=== PATIENT | male | born 1975 | race Caucasian/White ===

== ENCOUNTER 2017-11-13 17:06 | Emergency (ER) | payer OTHER ==
[2017-11-13] MEDS ORDERED: MEPERIDINE HCL 50 MG/ML AMP ONE (18:34)
[2017-11-13] MEDS ORDERED: PROMETHAZINE HCL 50 MG/ML AMP IM ONE (18:34)
--- NOTE | 2017-11-13 19:02 | EDPHYS ---
Physician Documentation [facility] Name: Fidencio Riley Age: 42 yrs Sex: Male : 1975 Arrival Date: 11/13/2017 Time: 17:09 Bed 15 Private MD: Fredy Capone ED Physician Constance Hawkins HPI: 11/13 18:41 This 42 yrs old Male presents to ER via Ambulatory with complaints of jr8 Toothache. 18:41 The patient presents with broken tooth/teeth, pain. The problem is located in the right jr8 lower jaw. Onset: The symptoms/episode began/occurred acutely, today. Duration: The symptoms are continuous. Modifying factors: The symptoms are alleviated by nothing, the symptoms are aggravated by air, chewing, cold fluids, talking. Associated signs and symptoms: The patient has no apparent associated signs or symptoms. Severity of symptoms: At their worst the symptoms were moderate, in the emergency department the symptoms are unchanged. The patient has not experienced similar symptoms in the past. The patient has not recently seen a physician. Historical: - Allergies: 17:11 Enbrel; sv - Home Meds: 17:11 meloxicam oral oral [Active]; Tramadol Oral [Active]; Prilosec Oral [Active]; sv - PMHx: 17:11 GERD; sv - PSHx: 17:11 Hernia repair; sv - Immunization history:: Adult Immunizations up to date. - Social history:: Smoking status: Patient/guardian denies using tobacco. - Ebola Screening: : No symptoms or risks identified at this time. ROS: 18:41 Eyes: Negative for injury, pain, redness, and discharge, Neck: Negative for injury, jr8 pain, and swelling, Cardiovascular: Negative for chest pain, palpitations, and edema, Respiratory: Negative for shortness of breath, cough, wheezing, and pleuritic chest pain, Abdomen/GI: Negative for abdominal pain, nausea, vomiting, diarrhea, and constipation, Back: Negative for injury and pain, MS/Extremity: Negative for injury and deformity, Skin: Negative for injury, rash, and discoloration, Neuro: Negative for headache, weakness, numbness, tingling, and seizure. 18:41 ENT: Positive for dental pain, Negative for ear pain, nasal discharge, rhinorrhea, sinus congestion, sinus pain, difficulty swallowing, difficulty handling secretions, hoarseness. Exam: 18:41 Eyes: Pupils equal round and reactive to light, extra-ocular motions intact. Lids and jr8 lashes normal. Conjunctiva and sclera are non-icteric and not injected. Cornea within normal limits. Periorbital areas with no swelling, redness, or edema. Neck: Trachea midline, no thyromegaly or masses palpated, and no cervical lymphadenopathy. Supple, full range of motion without nuchal rigidity, or vertebral point tenderness. No Meningismus. Cardiovascular: Regular rate and rhythm with a normal S1 and S2. No gallops, murmurs, or rubs. Normal PMI, no JVD. No pulse deficits. Respiratory: Lungs have equal breath sounds bilaterally, clear to auscultation and percussion. No rales, rhonchi or wheezes noted. No increased work of breathing, no retractions or nasal flaring. Abdomen/GI: Soft, non-tender, with normal bowel sounds. No distension or tympany. No guarding or rebound. No evidence of tenderness throughout. Back: No spinal tenderness. No costovertebral tenderness. Full range of motion. Skin: Warm, dry with normal turgor. Normal color with no rashes, no lesions, and no evidence of cellulitis. MS/ Extremity: Pulses equal, no cyanosis. Neurovascular intact. Full, normal range of motion. Neuro: Awake and alert, GCS 15, oriented to person, place, time, and situation. Cranial nerves II-XII grossly intact. Motor strength 5/5 in all extremities. Sensory grossly intact. Cerebellar exam normal. Normal gait. 18:41 ENT: Exam is negative for earache, ear discharge, TM abnormalities, nasal discharge, sinus tenderness, enlarged tonsils, pharyngitis, exudate, abnormal voice, Dental exam: dental caries, that is mild, diffusely, fractured teeth are noted, specifically the lower right second bicuspid (#29), gum swelling, not appreciated, pain, that is moderate, specifically in the lower right second bicuspid (#29). Vital Signs: 17:11 BP 128 / 88; Pulse 77; Resp 20; Temp 98.3; Pulse Ox 97% ; Weight 93.89 kg; Height 6 ft. sv 0 in. (182.88 cm); Pain 9/10; 18:45 BP 124 / 89; Pulse 72; Resp 18; Pulse Ox 97% ; Pain 9/10; ph 17:11 Body Mass Index 28.07 (93.89 kg, 182.88 cm) [facility]: 17:51 Patient medically screened. jr8 19:00 Data reviewed: vital signs, nurses notes, and as a result, I will discharge patient. jr8 Data interpreted: Pulse oximetry: on room air is 97 %. Interpretation: normal. Counseling: I had a detailed discussion with the patient and/or guardian regarding: the historical points, exam findings, and any diagnostic results supporting the discharge/admit diagnosis, the need for outpatient follow up, a dentist, to return to the emergency department if symptoms worsen or persist or if there are any questions or concerns that arise at home. Response to treatment: the patient's symptoms have markedly improved after treatment. Administered Medications: 18:35 Drug: Demerol 50 mg Route: IM; Site: right gluteus; ph 19:05 Follow up: Response: No adverse reaction; Pain is decreased ph 18:35 Drug: Phenergan 25 mg Route: IM; Site: right gluteus; ph 19:05 Follow up: Response: No adverse reaction ph Disposition: 11/13/17 19:00 Discharged to Home. Impression: Periapical abscess without sinus, Dentalgia. - Condition is Stable. - Discharge Instructions: Dental Abscess, Dental Pain. - Prescriptions for Augmentin 875- 125 mg Oral Tablet - take 1 tablet by ORAL route every 12 hours for 10 days; 20 tablet. - Medication Reconciliation Form, Thank You Letter, Antibiotic Education, Prescription Opioid Use form. - Follow up: Private Physician; When: 2 - 3 days; Reason: Recheck today's complaints, Continuance of care, Re-evaluation by your physician. - Problem is new. - Symptoms have improved. Addendum: 11/17/2017 18:23 Co-signature as Attending Physician, Constance Hawkins MD. m a2 Signatures: Deisy Gonzales, RN RN Sae Juarez PA PA jr8 Kirti Wahl RN RN Ritchie Bae RN RN jb4 Constance Hawkins MD MD ma2 Corrections: (The following items were deleted from the chart) 11/13 19:12 19:00 11/13/2017 19:00 Discharged to Home. Impression: Periapical abscess without jb4 sinus; Dentalgia. Condition is Stable. Forms are Medication Reconciliation Form, Thank You Letter, Antibiotic Education, Prescription Opioid Use. Follow up: Private Physician; When: 2 - 3 days; Reason: Recheck today's complaints, Continuance of care, Re-evaluation by your physician. Problem is new. Symptoms have improved. jr8
--- NOTE | 2017-11-13 19:02 | ER ---
Nurse's Notes [facility] Name: Fidencio Riley Age: 42 yrs Sex: Male : 1975 Arrival Date: 11/13/2017 Time: 17:09 Bed 15 Private MD: Fredy Capone Diagnosis: Periapical abscess without sinus;Dentalgia Presentation: 11/13 17:10 Presenting complaint: Patient states: right lower toothache. c/o n/v/d. Transition of sv care: patient was not received from another setting of care. Onset of symptoms was November 13, 2017. Care prior to arrival: None. 17:10 Method Of Arrival: Ambulatory sv 17:10 Acuity: JOSE G 3 sv 18:47 Risk Assessment: Do you want to hurt yourself or someone else? Patient reports no ph desire to harm self or others. Initial Sepsis Screen: Does the patient meet any 2 criteria? No. Patient's initial sepsis screen is negative. Does the patient have a suspected source of infection? No. Patient's initial sepsis screen is negative. Triage Assessment: 17:10 General: Appears uncomfortable, well developed, Behavior is cooperative, appropriate sv for age. Pain: Complains of pain in right lower tooth Pain currently is 9 out of 10 on a pain scale. EENT: Reports pain. Neuro: Level of Consciousness is awake, alert, obeys commands, Oriented to person, place, time, situation, Moves all extremities. Full function Gait is steady. Respiratory: Respiratory effort is even, unlabored, Respiratory pattern is regular, symmetrical. GI: Reports diarrhea, nausea, vomiting. Derm: Skin is normal. Historical: - Allergies: 17:11 Enbrel; sv - Home Meds: 17:11 meloxicam oral oral [Active]; Tramadol Oral [Active]; Prilosec Oral [Active]; sv - PMHx: 17:11 GERD; sv - PSHx: 17:11 Hernia repair; sv - Immunization history:: Adult Immunizations up to date. - Social history:: Smoking status: Patient/guardian denies using tobacco. - Ebola Screening: : No symptoms or risks identified at this time. Screenin:46 Abuse screen: Denies threats or abuse. Denies injuries from another. Nutritional ph screening: No deficits noted. Tuberculosis screening: No symptoms or risk factors identified. Fall Risk None identified. Assessment: 18:15 General: Appears in no apparent distress. uncomfortable, well groomed, Behavior is ph calm, cooperative, appropriate for age, Denies fever. Pain: Complains of pain in right jaw Pain currently is 9 out of 10 on a pain scale. Neuro: Level of Consciousness is awake, alert, obeys commands, Oriented to person, place, time, situation. Cardiovascular: Capillary refill < 3 seconds Patient's skin is warm and dry. Respiratory: Airway is patent Respiratory effort is even, unlabored. GI: Reports nausea, vomiting, Patient currently denies abdominal pain. EENT: Oral mucosa is moist. Dental caries noted in lower right second bicuspid (#29). Derm: Skin is intact, is healthy with good turgor, Skin is. Musculoskeletal: Circulation, motion, and sensation intact. Range of motion: intact in all extremities. 19:11 Reassessment: Patient appears in no apparent distress at this time. Patient and/or jb4 family updated on plan of care and expected duration. Pain level reassessed. Patient is alert, oriented x 3, equal unlabored respirations, skin warm/dry/pink. Vital Signs: 17:11 BP 128 / 88; Pulse 77; Resp 20; Temp 98.3; Pulse Ox 97% ; Weight 93.89 kg; Height 6 ft. sv 0 in. (182.88 cm); Pain 9/10; 18:45 BP 124 / 89; Pulse 72; Resp 18; Pulse Ox 97% ; Pain 9/10; ph 17:11 Body Mass Index 28.07 (93.89 kg, 182.88 cm) sv ED Course: 17:09 Patient arrived in ED. sb2 17:09 Freyd Capone DO is Private Physician. sb2 17:10 Triage completed. sv 17:12 Arm band placed on left wrist. sv 17:12 Patient placed in an exam room, Patient notified of wait time. sv 17:51 Sae Franco PA is PHCP. jr8 17:51 Constance Hawkins MD is Attending Physician. jr8 18:16 Kirti Wahl, [place] is Primary Nurse. ph 18:47 Patient has correct armband on for positive identification. Bed in low position. Call ph light in reach. Side rails up X 1. Pulse ox on. NIBP on. Warm blanket given. 18:47 No provider procedures requiring assistance completed. Patient did not have IV access ph during this emergency room visit. Administered Medications: 18:35 Drug: Demerol 50 mg Route: IM; Site: right gluteus; ph 19:05 Follow up: Response: No adverse reaction; Pain is decreased ph 18:35 Drug: Phenergan 25 mg Route: IM; Site: right gluteus; ph 19:05 Follow up: Response: No adverse reaction ph Outcome: 19:00 Discharge ordered by . martina 19:11 Discharged to home ambulatory. jb4 19:11 Condition: stable 19:11 Discharge instructions given to patient, family, Instructed on discharge instructions, follow up and referral plans. medication usage, Demonstrated understanding of instructions, follow-up care, medications, Prescriptions given X 1. 19:12 Patient left the ED. jb4 Signatures: Deisy Gonzales, RN RN Sae Franco PA PA jr8 Hall, Patricia, RN RN Ritchie Bae RN RN jb4 Amanda Saeed sb2 Corrections: (The following items were deleted from the chart) 17:12 17:10 Acuity: JOSE G 4 sv sv 17:13 17:11 Pulse 77bpm; Resp 20bpm; Pulse Ox 97%; Temp 98.3F; 93.89 kg; Height 6 ft. 0 in.; sv BMI: 28.0; sv
== END 2017-11-13 19:12 | disposition home or self-care (01) ==
LOC: ER 17:06
DX: K04.7 Periapical abscess without sinus (principal); K21.9 Gastro-esophageal reflux disease without esophagitis; Z88.8 Allergy status to other drugs, medicaments and biological substances
CPT/HCPCS: J2175; J2550; 96372; 99283

== ENCOUNTER 2018-01-19 09:12 | Emergency (ER) | payer OTHER ==
[2018-01-19] MEDS ORDERED: HYDROCODONE/APAP 10/325 TAB ONE (09:38)
--- NOTE | 2018-01-19 10:44 | EDPHYS ---
Physician Documentation [facility] Name: Fidencio Riley Age: 42 yrs Sex: Male : 1975 Arrival Date: 01/19/2018 Time: 09:14 Bed 14 Private MD: Fredy Capone ED Physician Franky Wang HPI: 01/19 09:29 This 42 yrs old Male presents to ER via Ambulatory with complaints of pm1 Toothache. 09:29 The patient presents with pain. The problem is located in the lower right first molar. pm1 09:29 Onset: The symptoms/episode began/occurred this morning. Duration: The symptoms are pm1 continuous. Modifying factors: The symptoms are alleviated by nothing. Associated signs and symptoms: Pertinent negatives: dysphagia, fever, inability to eat, swelling. Severity of symptoms: in the emergency department the symptoms are actually worse. The patient has experienced similar episodes in the past. dental extraction of third upper and lower molars on left side. Historical: - Allergies: 09:21 Enbrel; ss - PMHx: 09:21 GERD; ss - PSHx: 09:21 Hernia repair; ss - Immunization history:: Adult Immunizations up to date. - Social history:: Smoking status: Patient/guardian denies using tobacco. - Ebola Screening: : Patient denies exposure to infectious person Patient denies travel to an Ebola-affected area in the 21 days before illness onset. ROS: 09:29 Constitutional: Negative for fever, chills, and weight loss, Eyes: Negative for injury, pm1 pain, redness, and discharge. 09:29 Neck: Negative for injury, pain, and swelling, Cardiovascular: Negative for chest pain, palpitations, and edema, Respiratory: Negative for shortness of breath, cough, wheezing, and pleuritic chest pain, Abdomen/GI: Negative for abdominal pain, nausea, vomiting, diarrhea, and constipation, Back: Negative for injury and pain, : Negative for injury, bleeding, discharge, and swelling, MS/Extremity: Negative for injury and deformity, Skin: Negative for injury, rash, and discoloration, Neuro: Negative for headache, weakness, numbness, tingling, and seizure. 09:29 ENT: Positive for dental pain, Negative for drainage from ear(s), ear pain, difficulty swallowing, difficulty handling secretions, hoarseness. Exam: 09:29 Constitutional: This is a well developed, well nourished patient who is awake, alert, pm1 and in no acute distress. Head/Face: Normocephalic, atraumatic. Eyes: Pupils equal round and reactive to light, extra-ocular motions intact. Lids and lashes normal. Conjunctiva and sclera are non-icteric and not injected. Cornea within normal limits. Periorbital areas with no swelling, redness, or edema. 09:29 Neck: Trachea midline, no thyromegaly or masses palpated, and no cervical lymphadenopathy. Supple, full range of motion without nuchal rigidity, or vertebral point tenderness. No Meningismus. Chest/axilla: Normal chest wall appearance and motion. Nontender with no deformity. No lesions are appreciated. Cardiovascular: Regular rate and rhythm with a normal S1 and S2. No gallops, murmurs, or rubs. Normal PMI, no JVD. No pulse deficits. Respiratory: Lungs have equal breath sounds bilaterally, clear to auscultation and percussion. No rales, rhonchi or wheezes noted. No increased work of breathing, no retractions or nasal flaring. Abdomen/GI: Soft, non-tender, with normal bowel sounds. No distension or tympany. No guarding or rebound. No evidence of tenderness throughout. Back: No spinal tenderness. No costovertebral tenderness. Full range of motion. Skin: Warm, dry with normal turgor. Normal color with no rashes, no lesions, and no evidence of cellulitis. MS/ Extremity: Pulses equal, no cyanosis. Neurovascular intact. Full, normal range of motion. :29 ENT: External ear(s): are unremarkable, Ear canal(s): are normal, TM's: are normal, Nose: is normal, Mouth: is normal, no abscess, no drooling, (-) tongue elevation (-) trismus Lips: normal, Oral mucosa: normal, pink and intact, moist, Gums: normal with healthy appearance, Tongue: is normal, Posterior pharynx: is normal, airway is patent, no erythema, no exudate, no peritonsilar mass, no pooling of secretions, no swelling, Dental exam: fractured teeth are noted, specifically the lower right first molar (#30). 09:29 Neuro: Orientation: is normal, Motor: is normal, Gait: is steady, at a normal pace, without difficulty. Vital Signs: 09:21 BP 143 / 100; Pulse 89; Resp 17; Temp 98.1(TE); Pulse Ox 98% on R/A; Weight 93.89 kg; ss Height 6 ft. 0 in. (182.88 cm); Pain 5/10; 10:30 BP 138 / 92; Pulse 70; Resp 18; Temp 98.0; Pulse Ox 98% on R/A; ph 09:21 Body Mass Index 28.07 (93.89 kg, 182.88 cm) ss MDM: 09:17 Patient medically screened. pm1 09:29 Data reviewed: vital signs. Data interpreted: Pulse oximetry: on room air is 98 %. pm1 Interpretation: normal. 09:29 ED course: Patient had two teeth pulled by the dentist 3 days ago on the left side. pm1 Prescribed clindamycin and Tylenol #3 by dentist. Patient is currently on his 4 th day of antibiotics. Patient is currently taking tramadol for his pain and it does not work for his dental pain. His prescription for Tylenol #3 was refused by the pharmacist so he did not have any pain medications yesterday for his dental pain. 10:41 Counseling: I had a detailed discussion with the patient and/or guardian regarding: the pm1 historical points, exam findings, and any diagnostic results supporting the discharge/admit diagnosis, the need for outpatient follow up, to return to the emergency department if symptoms worsen or persist or if there are any questions or concerns that arise at home. Administered Medications: 09:36 Drug: [place] 10 mg-325 mg 1 tabs Route: PO; ph 10:54 Follow up: Response: No adverse reaction; Pain is unchanged, physician notified ph 10:53 Drug: Demerol 50 mg Route: IM; Site: right deltoid; ph 10:54 Follow up: Response: No adverse reaction; Medication administered at discharge. ph 10:54 Drug: Phenergan 25 mg Route: IM; Site: right deltoid; ph 10:54 Follow up: Response: No adverse reaction; Medication administered at discharge. ph Disposition: 01/20 11:10 Co-signature as Attending Physician, Franky Wang MD. gs Disposition: 01/19/18 10:43 Discharged to Home. Impression: Cracked tooth, Dental pain. - Condition is Stable. - Discharge Instructions: Dental Pain, Dental Pain, [id number], Diet and Dental Disease. - Medication Reconciliation Form, Thank You Letter, Antibiotic Education, Prescription Opioid Use form. - Follow up: Emergency Department; When: As needed; Reason: Worsening of condition. Follow up: Private Physician; When: 2 - 3 days; Reason: Recheck today's complaints, Continuance of care, Re-evaluation by your physician. - Problem is new. - Symptoms have improved. - Notes: Continue taking the antibiotic prescribed by your dentist as directed. Fill your tylenol #3 prescription for pain and take as directed. Signatures: Sneha Tipton RN RN ss Kirti Wahl RN RN ph Ty Rios, ANT WOOD DRILLING MACHINE OPERATOR pm1 Franky Wang MD MD Corrections: (The following items were deleted from the chart) 01/19 11:11 10:43 01/19/2018 10:43 Discharged to Home. Impression: Cracked tooth; Dental pain. ph Condition is Stable. Forms are Medication Reconciliation Form, Thank You Letter, Antibiotic Education, Prescription Opioid Use. Follow up: Emergency Department; When: As needed; Reason: Worsening of condition. Follow up: Private Physician; When: 2 - 3 days; Reason: Recheck today's complaints, Continuance of care, Re-evaluation by your physician. Problem is new. Symptoms have improved. pm1
--- NOTE | 2018-01-19 10:44 | ER ---
Nurse's Notes [facility] Name: Fidencio Riley Age: 42 yrs Sex: Male : 1975 Arrival Date: 01/19/2018 Time: 09:14 Bed 14 Private MD: Fredy Capone Diagnosis: Cracked tooth;Dental pain Presentation: 01/19 09:19 Presenting complaint: Patient states: dental pain that began this morning. PT recently ss had teeth pulled and has been on Clindamycin as he is getting this problematic tooth pulled this week. Pt states that he was trying to wait it out until the extraction, but is in too much pain. Transition of care: patient was not received from another setting of care. Onset of symptoms was January 19, 2018. Risk Assessment: Do you want to hurt yourself or someone else? Patient reports no desire to harm self or others. Initial Sepsis Screen: Does the patient meet any 2 criteria? No. Patient's initial sepsis screen is negative. Does the patient have a suspected source of infection? No. Patient's initial sepsis screen is negative. Care prior to arrival: None. 09:19 Method Of Arrival: Ambulatory ss 09:19 Acuity: JOSE G 5 ss Historical: - Allergies: 09:21 Enbrel; ss - PMHx: 09:21 GERD; ss - PSHx: 09:21 Hernia repair; ss - Immunization history:: Adult Immunizations up to date. - Social history:: Smoking status: Patient/guardian denies using tobacco. - Ebola Screening: : Patient denies exposure to infectious person Patient denies travel to an Ebola-affected area in the 21 days before illness onset. Screenin:45 Abuse screen: Denies threats or abuse. Denies injuries from another. Nutritional ph screening: No deficits noted. Tuberculosis screening: No symptoms or risk factors identified. Fall Risk None identified. Assessment: 09:35 General: Appears in no apparent distress. uncomfortable, well groomed, Behavior is ph calm, cooperative, appropriate for age, Denies fever. Pain: Complains of pain in right jaw Pain currently is 8 out of 10 on a pain scale. Quality of pain is described as throbbing. Neuro: Level of Consciousness is awake, alert, obeys commands, Oriented to person, place, time, situation. Cardiovascular: Capillary refill < 3 seconds Patient's skin is warm and dry. Respiratory: Airway is patent Respiratory effort is even, unlabored. GI: Patient currently denies diarrhea, nausea, vomiting. EENT: Poor dentition noted. Reports pain in lower right first molar and lower right second molar. Derm: Skin is intact, is healthy with good turgor, Skin is pink, warm \\T\\ dry. Musculoskeletal: Circulation, motion, and sensation intact. Range of motion: intact in all extremities. 10:45 Reassessment: Patient appears in no apparent distress at this time. Patient and/or ph family updated on plan of care and expected duration. Pain level reassessed. Patient is alert, oriented x 3, equal unlabored respirations, skin warm/dry/pink. Pt reports that pain has not improved after oral pain medication, ERP notified, see MAR. 11:10 Reassessment: Patient appears in no apparent distress at this time. Patient is alert, ph oriented x 3, equal unlabored respirations, skin warm/dry/pink. Pt d/c home w/ , states, " I will be calling the dentist first thing tomorrow.". Vital Signs: 09:21 BP 143 / 100; Pulse 89; Resp 17; Temp 98.1(TE); Pulse Ox 98% on R/A; Weight 93.89 kg; ss Height 6 ft. 0 in. (182.88 cm); Pain 5/10; 10:30 BP 138 / 92; Pulse 70; Resp 18; Temp 98.0; Pulse Ox 98% on R/A; ph 09:21 Body Mass Index 28.07 (93.89 kg, 182.88 cm) ED Course: 09:14 Patient arrived in ED. mr 09:15 Fredy Capone DO is Private Physician. mr 09:16 Ty Rios NP is PHCP. pm1 09:16 Franky Wang MD is Attending Physician. pm1 09:20 Kirti Wahl RN is Primary Nurse. ph 09:21 Triage completed. ss 09:21 Arm band placed on right wrist. ss 09:45 Patient has correct armband on for positive identification. Bed in low position. Call ph light in reach. Side rails up X 1. Pulse ox on. Sitter at bedside. Warm blanket given. 11:10 No provider procedures requiring assistance completed. Patient did not have IV access ph during this emergency room visit. Administered Medications: 09:36 Drug: [place] 10 mg-325 mg 1 tabs Route: PO; ph 10:54 Follow up: Response: No adverse reaction; Pain is unchanged, physician notified ph 10:53 Drug: Demerol 50 mg Route: IM; Site: right deltoid; ph 10:54 Follow up: Response: No adverse reaction; Medication administered at discharge. ph 10:54 Drug: Phenergan 25 mg Route: IM; Site: right deltoid; ph 10:54 Follow up: Response: No adverse reaction; Medication administered at discharge. ph Outcome: 10:43 Discharge ordered by MD. pm1 11:11 Patient left the ED. ph 11:11 Discharged to home ambulatory, with significant other. ph 11:11 Condition: good 11:11 Discharge instructions given to patient, significant other, Instructed on discharge instructions, follow up and referral plans. Signatures: Heidi Muir Shelby, RN RN Kirti Wahl RN RN ph Marinas, Patrick, ANT SEAM PRESSER pm1
[2018-01-19] MEDS ORDERED: MEPERIDINE HCL 50 MG/ML AMP ONE (10:48)
[2018-01-19] MEDS ORDERED: PROMETHAZINE HCL 50 MG/ML AMP IM ONE (10:49)
== END 2018-01-19 11:11 | disposition home or self-care (01) ==
LOC: ER 09:12
DX: K03.81 Cracked tooth (principal); K08.89 Other specified disorders of teeth and supporting structures
CPT/HCPCS: 96372; 99284; J2175; J2550

== ENCOUNTER 2018-04-14 00:32 | Observation (INO) | payer OTHER ==
--- OUTSIDE RECORDS SUMMARY | 2018-04-14 00:35 | XMS REPORT ---
:1975 [facility] Address [address] [place] [address] Dr. Thomas. [address] [place] [id number] Care Team Providers Name Role Phone Unavailable Unavailable Unavailable Problems This patient has no known problems. Allergies, Adverse Reactions, Alerts This patient has no known allergies or adverse reactions. Medications This patient has no known medications.
[2018-04-14 01:28] LABS: ALT/SGPT 54 U/L (12-78); AST/SGOT 23 U/L (15-37); Albumin 4.2 g/dL (3.4-5.0); Alkaline Phosphatase 90 U/L (45-117); BUN Blood Urea Nitrogen 20 mg/dL (7-18); Bicarbonate 26 mmol/L (21-32); Bilirubin Direct < 0.1 mg/dL (0-0.2); Bilirubin Total 0.2 mg/dL (0.2-1.0); Glucose Level 135 mg/dL (74-106); Magnesium 2.3 mg/dL (1.8-2.4); NT PRO-BNP 11 pg/mL (<125); Potassium 3.9 mmol/L (3.5-5.1); Protein, Total 7.8 g/dL (6.4-8.2); Sodium Level 144 mmol/L (136-145); Troponin (Emerg Dept Use Only) < 0.02 ng/mL (0.0-0.045)
[2018-04-14 01:28] LABS: Absolute Monocytes 0.9 K/uL (0.1-1.3); Absolute Neutrophil 7.4 K/uL (1.8-8.0); Basophils % 0.6 % (0-1.3); Eosinophils % 1.4 % (0-4.4); Hematocrit 42.1 % (39.6-49.0); Lymphocytes % 18.6 % (15.3-44.8); Monocytes % 8.4 % (3.3-12.3); RBC Red Blood Cell Count 4.96 M/uL (4.33-5.43)
[2018-04-14] MEDS ORDERED: NA CHLORIDE 0.9% 1,000 ML ONE (01:33)
[2018-04-14] MEDS ORDERED: METOPROLOL TARTRATE 5 MG/5 ML INJ IV ONE (01:33)
[2018-04-14] MEDS ORDERED: ENOXAPARIN 100 MG/ML SYR SQ ONE (01:33)
[2018-04-14] MEDS ORDERED: METOPROLOL TAR 50 MG TAB ONE (01:33)
[2018-04-14 01:39] LABS: Protime INR 1.03
--- NOTE | 2018-04-14 01:44 | EDPHYS ---
Physician Documentation [facility] Name: Fidencio Riley Age: 42 yrs Sex: Male : 1975 Arrival Date: 04/14/2018 Time: 00:37 Bed 19 Private MD: Fredy Capone ED Physician Jyalon Carolina HPI: 04/14 01:13 This 42 yrs old Male presents to ER via Ambulatory with complaints of Heart chato rate 120-130. 01:13 The patient has shortness of breath at rest. Onset: The symptoms/episode began/occurred chato today. Duration: The symptoms are continuous, and are steadily getting worse. The patient's shortness of breath has no apparent modifying factors, is aggravated by nothing. The patient presents with a history of heart racing. Context: The symptoms occur at rest. Historical: - Allergies: 00:48 Enbrel; la1 - Home Meds: 01:05 meloxicam Oral [Active]; Prilosec Oral [Active]; Tramadol Oral [Active]; tl2 - PMHx: 00:48 GERD; la1 - Immunization history:: Adult Immunizations up to date. - Social history:: Smoking status: Patient/guardian denies using tobacco. - Ebola Screening: : No symptoms or risks identified at this time. - Family history:: not pertinent. ROS: 01:13 Constitutional: Negative for fever, chills, and weight loss, Eyes: Negative for injury, chato pain, redness, and discharge, ENT: Negative for injury, pain, and discharge, Neck: Negative for injury, pain, and swelling, Respiratory: Negative for shortness of breath, cough, wheezing, and pleuritic chest pain, Abdomen/GI: Negative for abdominal pain, nausea, vomiting, diarrhea, and constipation, Back: Negative for injury and pain, : Negative for injury, bleeding, discharge, and swelling, MS/Extremity: Negative for injury and deformity, Skin: Negative for injury, rash, and discoloration, Neuro: Negative for headache, weakness, numbness, tingling, and seizure, Psych: Negative for depression, anxiety, suicide ideation, homicidal ideation, and hallucinations, Allergy/Immunology: Negative for hives, rash, and allergies, Endocrine: Negative for neck swelling, polydipsia, polyuria, polyphagia, and marked weight changes, Hematologic/Lymphatic: Negative for swollen nodes, abnormal bleeding, and unusual bruising. 01:13 Constitutional: Positive for 01:13 Cardiovascular: Positive for chest pain, of the anterior aspect of left shoulder. Exam: 01:13 Constitutional: This is a well developed, well nourished patient who is awake, alert, chato and in no acute distress. Head/Face: Normocephalic, atraumatic. Eyes: Pupils equal round and reactive to light, extra-ocular motions intact. Lids and lashes normal. Conjunctiva and sclera are non-icteric and not injected. Cornea within normal limits. Periorbital areas with no swelling, redness, or edema. ENT: Nares patent. No nasal discharge, no septal abnormalities noted. Tympanic membranes are normal and external auditory canals are clear. Oropharynx with no redness, swelling, or masses, exudates, or evidence of obstruction, uvula midline. Mucous membranes moist. Neck: Trachea midline, no thyromegaly or masses palpated, and no cervical lymphadenopathy. Supple, full range of motion without nuchal rigidity, or vertebral point tenderness. No Meningismus. Chest/axilla: Normal chest wall appearance and motion. Nontender with no deformity. No lesions are appreciated. Respiratory: Lungs have equal breath sounds bilaterally, clear to auscultation and percussion. No rales, rhonchi or wheezes noted. No increased work of breathing, no retractions or nasal flaring. Abdomen/GI: Soft, non-tender, with normal bowel sounds. No distension or tympany. No guarding or rebound. No evidence of tenderness throughout. Back: No spinal tenderness. No costovertebral tenderness. Full range of motion. Male : Normal genitalia with no discharge or lesions. Skin: Warm, dry with normal turgor. Normal color with no rashes, no lesions, and no evidence of cellulitis. MS/ Extremity: Pulses equal, no cyanosis. Neurovascular intact. Full, normal range of motion. Neuro: Awake and alert, GCS 15, oriented to person, place, time, and situation. Cranial nerves II-XII grossly intact. Motor strength 5/5 in all extremities. Sensory grossly intact. Cerebellar exam normal. Normal gait. Psych: Awake, alert, with orientation to person, place and time. Behavior, mood, and affect are within normal limits. 01:13 Cardiovascular: Rate: tachycardic, Rhythm: regular, Heart sounds: normal, Edema: is not appreciated, JVD: is not appreciated. 01:43 Musculoskeletal/extremity: ROM: no acute changes, intact in all extremities, chato Circulation is intact in all extremities. Sensation intact. Compartment Syndrome exam of affected extremity: is normal. DVT Exam: No signs of deep vein thrombosis. no pain, no swelling, no tenderness, negative Homans' sign noted on exam, no appreciated bluish discoloration, no erythema, no increased warmth. Vital Signs: 00:48 BP 145 / 97; Pulse 120; Resp 18; Temp 97; Pulse Ox 98% on R/A; Weight 90.72 kg; Height la1 6 ft. 0 in. (182.88 cm); 01:02 BP 125 / 89; Pulse 106; Resp 24; Pulse Ox 94% on R/A; tl2 01:34 BP 117 / 79; Pulse 94; Resp 22; Pulse Ox 94% on R/A; tl2 03:08 BP 121 / 85; Pulse 64; Resp 21; Pulse Ox 98% on R/A; tl2 00:48 Body Mass Index 27.12 (90.72 kg, 182.88 cm) la1 MDM: 01:[address] [facility] 01:17 Data reviewed: vital signs, nurses notes, lab test result(s), EKG, radiologic studies, [facility] plain films. 02 00:49 Order name: Basic Metabolic Panel; Complete Time: 01:41 ok04/14 00:49 Order name: CBC with Diff; Complete Time: 01:41 ok04/14 00:49 Order name: LFT's; Complete Time: 01:41 ok04/14 00:49 Order name: Magnesium; Complete Time: 01:41 04/14 00:49 Order name: NT PRO-BNP; Complete Time: 01:41 04/14 00:49 Order name: PT-INR; Complete Time: 01:59 ok04/14 00:49 Order name: Troponin (emerg Dept Use Only); Complete Time: 01:41 04/14 00:49 Order name: XRAY Chest (1 view) [facility] 04/14 01:12 Order name: UDS [facility] 04/14 01:12 Order name: TSH; Complete Time: 01:59 [facility] 04/14 01:24 Order name: D-Dimer; Complete Time: 01:59 [facility] 04/14 03:09 Order name: Urine Dipstick--Ancillary (enter results) ar5 04/14 03:14 Order name: Urine Dipstick-Ancillary [facility] 04/14 00:49 Order name: EKG; Complete Time: 00:50 [facility] 04/14 00:49 Order name: Cardiac monitoring; Complete Time: 01:01 [facility] 04/14 00:49 Order name: EKG - Nurse/Tech; Complete Time: 01:01 ok04/14 00:49 Order name: IV Saline Lock; Complete Time: 01:01 ok04/14 00:49 Order name: Labs collected and sent; Complete Time: 01: ok04/14 00:49 Order name: O2 Per Protocol; Complete Time: 01:01 ok04/14 00:49 Order name: O2 Sat Monitoring; Complete Time: 01:01 [facility] 04/14 02:01 Order name: EKG; Complete Time: 02:01 [facility] 04/14 02:01 Order name: EKG - Nurse/Tech; Complete Time: 02:28 [facility] 04/14 02:31 Order name: Urine Dipstick-Ancillary (obtain specimen); Complete Time: 03:08 [facility] Administered Medications: 01:32 Drug: NS 0.9% 1000 ml Route: IV; Rate: 1 bolus; Site: right antecubital; tl2 03:15 Follow up: IV Status: Completed infusion; IV Intake: 1000ml tl2 01:33 Drug: Lovenox 1 mg/kg Route: Sub-Q; Site: right lower abdomen; tl2 02:00 Follow up: Response: No adverse reaction tl2 01:33 Drug: Lopressor (metoprolol TARTRATE) 50 mg Route: PO; tl2 03:15 Follow up: Response: No adverse reaction; Cardiac rhythm changed tl2 01:33 Drug: Lopressor 5 mg Route: IVP; Site: right antecubital; tl2 03:15 Follow up: Response: No adverse reaction; Cardiac rhythm changed tl2 01:59 Drug: Aspirin Chewable Tablet 324 mg Route: PO; tl2 03:15 Follow up: Response: No adverse reaction tl2 01:59 Drug: Pepcid 20 mg Route: IVP; Site: right antecubital; tl2 03:15 Follow up: Response: No adverse reaction tl2 Disposition: 04/14/18 01:43 Hospitalization ordered by Kadeem Guzman for Observation. Preliminary diagnosis are Tachycardia, unspecified, Palpitations, Other chest pain - atypical. - Bed requested for Telemetry/MedSurg (observation). - Status is Observation. tl2 - Condition is Stable. - Problem is new. - Symptoms have improved. UTI on Admission? No Signatures: Dispatcher [employer] [facility] Polina Dailey RN RN kl Anderson, Corey, MD MD cha Attema, Lee, RN RN la1 Lora Meza RN RN tl2 Corrections: (The following items were deleted from the chart) 01:24 01:13 D-DIMER+COAG.LAB.BRZ ordered. [facility] 03:02 01:43 Hospitalization Ordered by Kadeem Guzman MD for Observation. Preliminary kl diagnosis is Tachycardia, unspecified; Palpitations; Other chest pain - atypical. Bed requested for Telemetry/MedSurg (observation). Status is Observation. Condition is Stable. Problem is new. Symptoms have improved. UTI on Admission? No. chato 03:31 03:02 04/14/2018 01:43 Hospitalization Ordered by Kadeem Guzman MD for Observation. tl2 Preliminary diagnosis is Tachycardia, unspecified; Palpitations; Other chest pain - atypical. Bed requested for Telemetry/MedSurg (observation). Status is Observation. Condition is Stable. Problem is new. Symptoms have improved. UTI on Admission? No. kl
--- NOTE | 2018-04-14 01:44 | ER ---
Nurse's Notes [facility] Name: Fidencio Riley Age: 42 yrs Sex: Male : 1975 Arrival Date: 04/14/2018 Time: 00:37 Bed 19 Private MD: Fredy Capone Diagnosis: Tachycardia, unspecified;Palpitations;Other chest pain-atypical Presentation: 04/14 00:46 Presenting complaint: Patient states: I have been having intermittent episodes where my la1 HR is in like the 120s and it usually lasts about 10 minutes and goes away, tonight it has been going on for 2-3 hours and I am having chest pain, dizziness, and a headache as well as being clammy. Transition of care: patient was not received from another setting of care. Onset of symptoms was April 14, 2018. Risk Assessment: Do you want to hurt yourself or someone else? Patient reports no desire to harm self or others. Initial Sepsis Screen: Does the patient meet any 2 criteria? No. Patient's initial sepsis screen is negative. Does the patient have a suspected source of infection? No. Patient's initial sepsis screen is negative. Care prior to arrival: None. 00:46 Method Of Arrival: Ambulatory la1 00:46 Acuity: JOSE G 2 la1 Historical: - Allergies: 00:48 Enbrel; la1 - Home Meds: 01:05 meloxicam Oral [Active]; Prilosec Oral [Active]; Tramadol Oral [Active]; tl2 - PMHx: 00:48 GERD; la1 - Immunization history:: Adult Immunizations up to date. - Social history:: Smoking status: Patient/guardian denies using tobacco. - Ebola Screening: : No symptoms or risks identified at this time. - Family history:: not pertinent. Screenin:02 Abuse screen: Denies threats or abuse. Nutritional screening: No deficits noted. tl2 Tuberculosis screening: No symptoms or risk factors identified. Fall Risk None identified. Assessment: 01:02 General: Appears in no apparent distress. uncomfortable, Behavior is cooperative, tl2 appropriate for age, anxious. Pain: Complains of pain in chest Pain radiates to anterior aspect of left shoulder. Neuro: Level of Consciousness is awake, alert, obeys commands, Oriented to person, place, time, situation. Cardiovascular: Rhythm is sinus rhythm with PACs. Cardiovascular: Reports diaphoresis, palpitations. Respiratory: Airway is patent Respiratory effort is even, unlabored, Respiratory pattern is regular, symmetrical, Denies shortness of breath. GI: No signs and/or symptoms were reported involving the gastrointestinal system. : No signs and/or symptoms were reported regarding the genitourinary system. Derm: Skin is pink, warm \T\ dry. Vital Signs: 00:48 BP 145 / 97; Pulse 120; Resp 18; Temp 97; Pulse Ox 98% on R/A; Weight 90.72 kg; Height la1 6 ft. 0 in. (182.88 cm); 01:02 BP 125 / 89; Pulse 106; Resp 24; Pulse Ox 94% on R/A; tl2 01:34 BP 117 / 79; Pulse 94; Resp 22; Pulse Ox 94% on R/A; tl2 03:08 BP 121 / 85; Pulse 64; Resp 21; Pulse Ox 98% on R/A; tl2 00:48 Body Mass Index 27.12 (90.72 kg, 182.88 cm) la1 Vitals: 01:02 Cardiac Rhythm Assessment Irregular Sinus rhythm. tl2 03:08 Cardiac Rhythm Assessment Regular Sinus rhythm. tl2 ED Course: 00:37 Patient arrived in ED. es 00:38 Fredy Capone DO is Private Physician. es 00:47 Triage completed. la1 00:48 Arm band placed on left wrist. la1 01:00 Jaylon Carolina MD is Attending Physician. chato 01:01 Initial lab(s) drawn, by ok, sent to lab. EKG done, by ED staff, reviewed by Jaylon Carolina MD. Inserted saline lock: 20 gauge in right antecubital area, using aseptic technique. Blood collected. 01:02 Patient has correct armband on for positive identification. Placed in gown. Bed in low tl2 position. Call light in reach. Side rails up X 1. Adult w/ patient. 01:12 Fredy Ricardo, CAROLINA is Primary Nurse. la1 01:34 Lora Meza, CAROLINA is Primary Nurse. tl2 01:34 XRAY Chest (1 view) In Process Unspecified. EDMS 01:41 Kadeem Guzman MD is Hospitalizing Provider. chato 03:20 No provider procedures requiring assistance completed. Patient admitted, IV remains in tl2 place. Administered Medications: 01:32 Drug: NS 0.9% 1000 ml Route: IV; Rate: 1 bolus; Site: right antecubital; tl2 03:15 Follow up: IV Status: Completed infusion; IV Intake: 1000ml tl2 01:33 Drug: Lovenox 1 mg/kg Route: Sub-Q; Site: right lower abdomen; tl2 02:00 Follow up: Response: No adverse reaction tl2 01:33 Drug: Lopressor (metoprolol TARTRATE) 50 mg Route: PO; tl2 03:15 Follow up: Response: No adverse reaction; Cardiac rhythm changed tl2 01:33 Drug: Lopressor 5 mg Route: IVP; Site: right antecubital; tl2 03:15 Follow up: Response: No adverse reaction; Cardiac rhythm changed tl2 01:59 Drug: Aspirin Chewable Tablet 324 mg Route: PO; tl2 03:15 Follow up: Response: No adverse reaction tl2 01:59 Drug: Pepcid 20 mg Route: IVP; Site: right antecubital; tl2 03:15 Follow up: Response: No adverse reaction tl2 Intake: 03:15 IV: 1000ml; Total: 1000ml. tl2 Outcome: 01:43 Decision to Hospitalize by Provider. chato 03:20 Admitted to Tele accompanied by tech, family with patient, via wheelchair, room 407, tl2 with chart, Report called to CAROLINA Worthington 03:20 Condition: stable 03:20 Discharge instructions given to patient, family, Instructed on the need for admit. 03:31 Patient left the ED. tl2 Signatures: Dispatcher [employer] Jaylon Brady MD MD cha Salyer, Edna es Attema, Lee RN RN la1 Lora Meza RN RN tl2 Corrections: (The following items were deleted from the chart) 00:49 00:46 Acuity: JOSE G 3 la1 la1 01:04 01:02 Cardiac Rhythm Assessment Sinus rhythm W/PAC's tl2 tl2 03:15 03:08 BP 121 / 85; Pulse 64bpm; Resp 21bpm; Pulse Ox 67% RA; tl2 tl2
[2018-04-14] MEDS ORDERED: FAMOTIDINE 20 MG/2 ML VIAL IV ONE (02:00)
[2018-04-14] MEDS ORDERED: ASPIRIN 81 MG CHEWABLE TABLET ONE (02:00)
--- NOTE | 2018-04-14 02:51 | P.HP ---
Certification for Inpatient Patient admitted to: Observation With expected LOS: <2 Midnights Practitioner: I am a practitioner with admitting privileges, knowledge of patient current condition, hospital course, and medical plan of care. Services: Services provided to patient in accordance with Admission requirements found in Title 42 Section 412.3 of the Code of Federal Regulations Patient History Date of Service: 04/14/18 Reason for admission: chest pain History of Present Illness: Mr Riley is a 42 years old male with history of GERD and recurrent episodes of tachycardia since about 10 years ago. He was already seen by social service director in the past, but not clear diagnosis have been made. At this time, the patient was in the bed, when suddenly start feeling palpitations and rapid heart rate associated with diaphoresis and chest pain, which are new symptoms for him. His pain was retrosternal, pressure like, radiated to the back, 7/10 of intensity. He denied nausea and SOB. Lab work is unremarkable, including negative initial trop I and normal TSH, EKG shows sinus tachycardia with frequent PAC's without ST-T abnormalities. He does not drink alcohol, coffee, use illegal drugs or smoke cigarettes. At my encounter, the patient was chest pain free, but really concern about his new symptoms. Allergies etanercept [From Enbrel] Allergy (Verified 01/08/17 08:49) Itching/Hives/Rash honey Allergy (Verified 01/08/17 08:49) Itching/Hives/Rash Home medications list reviewed: Yes Home Medications: Celecoxib [Celebrex] 200 mg PO BID 01/08/17 Multivit-Min/FA/Lycopen/Lutein [Centrum Silver Tablet] 1 each PO DAILY 01/08/17 Omeprazole [Prilosec] 40 mg PO DAILY 01/08/17 Tramadol HCl [Ultram] 50 mg PO Q6HP PRN 01/08/17 sulfaSALAzine [Sulfasalazine] 500 mg PO BID 01/08/17 - Past Medical/Surgical History -: tachycardia -: GERD Past Surgical History: Reviewed- Non-Contributory - Social History Smoking Status: Never smoker Alcohol use: No CD- Drugs: No Caffeine use: No Place of Residence: Home Review of Systems 10-point ROS is otherwise unremarkable Physical Examination - Physical Exam General: Alert, In no apparent distress HEENT: Atraumatic, PERRLA, Mucous membr. moist/pink, EOMI, Sclerae nonicteric Neck: Supple, 2+ carotid pulse no bruit, No LAD, Without JVD or thyroid abnormality Respiratory: Clear to auscultation bilaterally, Normal air movement Cardiovascular: Regular rate/rhythm, Normal S1 S2 Gastrointestinal: Normal bowel sounds, No tenderness Musculoskeletal: No tenderness Integumentary: No rashes Neurological: Normal gait, Normal speech, Normal strength at 5/5 x4 extr, Normal tone, Normal affect Lymphatics: No axilla or inguinal lymphadenopathy - Studies Laboratory Data (last 24 hrs) 04/14/18 01:15: PT 12.1, INR 1.03 04/14/18 01:15: WBC 10.5, Hgb 14.3, Hct 42.1, Plt Count 279 04/14/18 00:55: Sodium 144, Potassium 3.9, BUN 20 H, Creatinine 1.07, Glucose 135 H, Magnesium 2.3, Total Bilirubin 0.2, AST 23, ALT 54, Alkaline Phosphatase 90 Assessment and Plan - Problems (Diagnosis) (1) Chest pain Current Visit: Yes Status: Acute Qualifiers: Chest pain type: precordial pain Qualified Code(s): R07.2 - Precordial pain (2) Sinus tachycardia Current Visit: Yes Status: Acute (3) Palpitations Current Visit: Yes Status: Acute (4) GERD (gastroesophageal reflux disease) Current Visit: Yes Status: Acute Qualifiers: Esophagitis presence: esophagitis presence not specified Qualified Code(s) : K21.9 - Gastro-esophageal reflux disease without esophagitis - Plan The patient will be admitted to the hospital due to chest pain associated with sinus tachycardia and diaphoresis. At the moment no signs of ACS. Will order serial trop I, EKG, ECHO, cardiology consult. - Advance Directives Does patient have a Living Will: No Does patient have a Durable POA for Healthcare: No - Code Status/Comfort Care Code Status Assessed: Yes Code Status: Full Code
[2018-04-14 03:13] LABS: Urine Blood TRACE (NEG); Urine Glucose NEGATIVE (NEG); Urine Protein NEGATIVE (NEG); Urine Specific Gravity 1.015 (1.005-1.030)
[2018-04-14 03:25] LABS: Barbiturates NEGATIVE (NEGATIVE); Benzodiazepines NEGATIVE (NEGATIVE); Cocaine NEGATIVE (NEGATIVE); METHAMPHETAM NEGATIVE (NEGATIVE); Methadone NEGATIVE (NEGATIVE); Opiates NEGATIVE (NEGATIVE); Phencyclidine NEGATIVE (NEGATIVE); THC Cannibis NEGATIVE (NEGATIVE)
[2018-04-14] MEDS ORDERED: ACETAMINOPHEN 500 MG TAB PO PRN (03:43)
[2018-04-14] MEDS ORDERED: ONDANSETRON 4 MG/2 ML VIAL IV PRN (03:43)
[2018-04-14 04:06] VITALS: BMI 27.1
--- NOTE | 2018-04-14 07:20 | EKG ---
Test Date: 2018-04-14 Test Time: 00:45:23 Finance Professional: PAL MEASUREMENT RESULTS: Intervals: Rate: 100 IA: 136 QRSD: 78 QT: 336 QTc: 433 [place]: P: 40 IA: 136 QRS: 2 T: 45 INTERPRETIVE STATEMENTS: Sinus rhythm with premature atrial complexes Abnormal ECG Compared to ECG 01/08/2017 08:58:18 Atrial premature complex(es) now present Sinus bradycardia no longer present Electronically Signed On 04-14-18 07:20:08 FIRE ASSISTANT by Mikey Gavin
--- NOTE | 2018-04-14 07:20 | EKG ---
Test Date: 2018-04-14 Test Time: 02:19:49 Event Staff: TIFFANY MEASUREMENT RESULTS: Intervals: Rate: 75 [place]: 150 QRSD: 84 QT: 372 QTc: 415 [place]: P: 52 [place]: 150 QRS: 8 T: 45 INTERPRETIVE STATEMENTS: Normal sinus rhythm Normal ECG Compared to ECG 04/14/2018 00:45:23 Atrial premature complex(es) no longer present Myocardial infarct finding no longer present Electronically Signed On 04-14-18 07:19:45 CHANGE MANAGEMENT DIRECTOR by Mikey Gavin
--- NOTE | 2018-04-14 08:27 | RAD REPORT ---
EXAM DESCRIPTION: RAD - Chest Single View - 04/14/2018 1:34 am CLINICAL HISTORY: Chest pain COMPARISON: None. TECHNIQUE: AP portable chest image was obtained 0121 hours . FINDINGS: No acute infiltrates seen. Small granuloma seen in the lateral right lung base. There is a vague nodular density lateral lower left lung field that may be summation artifact. This is a very s ubtle finding. Long-term significance is doubtful. No failure or volume overload. Heart and vasculature are normal. No measurable pleural effusion and no pneumothorax. No acute bony abnormality seen. No acute aortic findings suspected. IMPRESSION: No acute cardiopulmonary process. Vague nodular density lateral left lung base is probably a small granuloma or summation artifact. Fin ding can be re-evaluated with a dedicated two-view chest examination.
[2018-04-14] MEDS ORDERED: ENOXAPARIN 40 MG/0.4 ML SQ SCH (09:00)
[2018-04-14] MEDS ORDERED: ASPIRIN EC 81 MG TAB PO SCH (09:00)
--- NOTE | 2018-04-14 12:29 | CON ---
A 42-year-old man. Primary Care Physician: Fredy Vargas DO Chief Complaint: Palpitations and chest pain. History Of Present Illness: Mr. Riley has had palpitations for several years. Doctors are failed to make any specific diagnosis. He does not take any medications usually. There is no history of diabe ruthy, hypertension, dyslipidemia. He takes sulfasalazine, tramadol, omeprazole, multivitamin, and yeison oxicam. I am not sure what the indication for sulfasalazine is. He uses no tobacco. Rare alcohol. No illegal drug use. Never had myocardial infarction, stroke, or any vascular interventions. He is apparently intolerant to etanercept and honey. Physical Examination: General: He is alert, oriented, pleasant, not in distress. Lungs: Clear. There is no carotid brui t. Heart: Normal. Extremities: Normal. Laboratory Data: His EKGs show sinus rhythm or sinus tach with PACs. Chest x-ray has not been inter preted and appears to be within normal limits, nonofficial viewing. Impression: Mr. Riley has some kind of tachyarrhythmia and I think we should do a stress test on him and echo. If those are normal, discharge him taking a low-dose slow release beta vikki and have hi m wear an event monitor for a month to see if he has underlying atrial fib. So far, there has been no atrial fib while he has been here in the hospital. ADOLFO Voice ID: [id number] Report ID: [id number]
--- NOTE | 2018-04-14 13:45 | ECHO ---
HEIGHT: 6 ft 0 in WEIGHT: 200 lb 0 oz DATE OF STUDY: 04/14/[address]: Kadeem Joshua MD 2-DIMENSIONAL: YES M.MODE: YES DOPPLER: YES COLOR FLOW: YES TDS: PORTABLE: DEFINITY: BUBBLE STUDY: DIAGNOSIS: CHEST PAIN CARDIAC HISTORY: CATHERIZATION: SURGERY: PROSTHETIC VALVE: NO PACEMAKER: NO MEASUREMENTS (cm) DIASTOLIC (NORMALS) SYSTOLIC (NORMALS) IVSd 1.0 (0.6-1.2) LA Diam 3.7 (1.9-4.0) LVEF 69% LVIDd 4.2 (3.5-5.7) LVIDs 2.6 (2.0-3.5) %FS 39% LVPWd 1.0 (0.6-1.2) Ao Diam 3.3 (2.0-3.7) 2 DIMENSIONAL ASSESSMENT: RIGHT ATRIUM: NORMAL LEFT ATRIUM: NORMAL RIGHT VENTRICLE: NORMAL LEFT VENTRICLE: NORMAL TRICUSPID VALVE: NORMAL MITRAL VALVE: NORMAL PULMONIC VALVE: NORMAL AORTIC VALVE: NORMAL PERICARDIAL EFFUSION: NONE AORTIC ROOT: NORMAL LEFT VENTRICULAR WALL MOTION: NORMAL DOPPLER/COLOR FLOW: PHYSIOLOGIC TRICUSPID REGURGITATION. NORMAL RIGHT VENTRICULAR SYSTOLIC PRESSURE. COMMENTS: NORMAL TWO DIMENSIONAL ECHOCARDIOGRAM WITH DOPPLER. TECHNOLOGIST: GLO PITTMAN
[2018-04-14 14:36] VITALS: O2SAT 96
[2018-04-14] MEDS ORDERED: POTASSIUM CL SA 10 MEQ TAB PO ONE (17:00)
[2018-04-14 17:41] VITALS: BP 97/67; TEMP 97.4
--- NOTE | 2018-04-14 17:52 | TREADMILL ---
70% H.R.: 125 85% H.R.: 152 90% H.R.: 161 100% H.R.: 179 DX: PALPITATION, CHEST PAIN. Date of Study: 04/14/2018 Ht: 6 0 Wt: 200 lb 0 oz Consulting Physician: YUNI MEDICATIONS: TYLENOL, ASPIRIN, ZOFRAN, LOVENOX. HISTORY: 42 YEAR MALE, COMPLAINTS OF CHEST PAIN, PALPITATIONS. HISTORY: ARTHRITIS, HERNIA REPAIR UMBILICAL. NON-SMOKER, NON-DRINKER. PHYSICIAL EXAMINATION: RESTING B.P.: 117/93 RESTING H.R.: 71 RESTING EKG: NORMAL PROTOCOL: ETHEL ROUTINE EXERCISE TIME: 7:25 MAXIMUM HEART RATE: 160 89 % OF PREDICTED B.P. AT PEAK STRESS: 154/90 H.R. AT 1 MINUTE POST EXERCISE: 144 IMPRESSION: ROUTINE TREADMILL STOPPED DUE TO TARGET HEART RATE REACHED, PATIENT FATIGUE. NO SUPRAVENTRICULAR TACHYCARDIA. NO VENTRICULAR TACHYCARDIA. NO PREMATURE ATRIAL COMPLEXS. NO PREMATURE VENTRICULAR COMPLEXS. PATIENT REPORTED NO CHEST PAIN, OR TIGHTNESS THROUGHOUT PROCEDURE, OR IN RECOVERY. NO ST CHANGES. NORMAL STRESS TEST.
== END 2018-04-14 20:15 | disposition home or self-care (01) ==
LOC: ER 00:32 → ERHOLD 02:43 → 4TH 03:17
PROVIDERS: ADMIT Internal Medicine; ATTEND Internal Medicine
DX: R07.9 Chest pain, unspecified (principal); R00.0 Tachycardia, unspecified; R00.2 Palpitations; K21.9 Gastro-esophageal reflux disease without esophagitis
CPT/HCPCS: 36415; 71045; 80048; 80076; 80307 ×8; 81003; 83735; 83880; 84443; 84484 ×3; 85025; 85379; 85610; 93005 ×2; 93017; 93306; 96361; 96372; 96374; 96375; 99285; G0378 ×2; J1650 ×2; J7030

== ENCOUNTER 2018-07-12 09:48 | Emergency (ER) | payer OTHER ==
--- OUTSIDE RECORDS SUMMARY | 2018-07-12 09:50 | XMS REPORT ---
:1975 [facility] Address [address] [place] [address] [address] [place] [address] Care Team Providers Name Role Phone Unavailable Unavailable Unavailable Problems This patient has no known problems. Allergies, Adverse Reactions, Alerts This patient has no known allergies or adverse reactions. Medications This patient has no known medications.
[2018-07-12] MEDS ORDERED: MORPHINE 4 MG/ML SYR ONE (10:24)
[2018-07-12] MEDS ORDERED: ONDANSETRON 4 MG/2 ML VIAL ONE (10:24)
[2018-07-12 10:43] LABS: Absolute Lymphocytes (CBC) 3.5 K/uL (0.7-4.9); Basophils % 0.8 % (0-1.3); Eosinophils % 2.1 % (0-4.4); Hematocrit 44.6 % (39.6-49.0); Lymphocytes % 32.3 % (15.3-44.8); MPV 8.8 fL (7.6-11.3); Monocytes % 8.8 % (3.3-12.3); RBC Red Blood Cell Count 5.22 M/uL (4.33-5.43)
[2018-07-12 11:00] LABS: Albumin 3.9 g/dL (3.4-5.0); Bilirubin Direct 0.1 mg/dL (0-0.2); Bilirubin Total 0.5 mg/dL (0.2-1.0); Potassium 3.8 mmol/L (3.5-5.1); Protein, Total 7.7 g/dL (6.4-8.2)
--- NOTE | 2018-07-12 12:06 | RAD REPORT ---
EXAM DESCRIPTION: CTAbdomen Pelvis W Contrast - 07/12/2018 11:59 am CLINICAL HISTORY: Abdominal pain. periumbilical and RLQ, 1 year old mesh hernia repa;Abd pain COMPARISON: Abdomen Pelvis W Contrast dated 12/11/2016 TECHNIQUE: Biphasic CT imaging of the abdomen and pelvis was performed with 100 ml non-ionic IV cont rast. All CT scans are performed using dose optimization technique as appropriate and may include automated exposure control or mA/KV adjustment according to patient size. FINDINGS: Mild subsegmental atelectasis is present in the left lung base. Diffuse fatty liver is present. No aggressive liver lesion or biliary dilatation. The spleen, pancrea s, adrenal glands and kidneys are within normal limits. No bowel obstruction, free air, free fluid or abscess. Moderate fecal retention in the colon. The quinten endix is normal. No significant hernia seen. No evidence of significant lymphadenopathy. No suspicious bony findings. IMPRESSION: No acute intra-abdominal or pelvic finding. Prominent fatty liver.
--- NOTE | 2018-07-12 12:15 | ER ---
Nurse's Notes [facility] Name: Fidencio Riley Age: 42 yrs Sex: Male : 1975 Arrival Date: 07/12/2018 Time: 09:50 Bed 18 Private MD: Fredy Capone Diagnosis: Unspecified abdominal pain Presentation: 07/12 10:03 Presenting complaint: Patient states: abd pain for 2 days, reports nausea, denies em diarrhea or fever, also reports having high liver enzymes and has had a hernia repair in the past. Transition of care: patient was not received from another setting of care. Onset of symptoms was July 10, 2018. Risk Assessment: Do you want to hurt yourself or someone else? Patient reports no desire to harm self or others. Initial Sepsis Screen: Does the patient meet any 2 criteria? No. Patient's initial sepsis screen is negative. Does the patient have a suspected source of infection? No. Patient's initial sepsis screen is negative. Care prior to arrival: None. 10:03 Method Of Arrival: Ambulatory em 10:09 Acuity: JOSE G 3 iw Historical: - Allergies: 10:08 Enbrel; em - Home Meds: 10:08 metoprolol tartrate 25 mg Oral tab 1 tab once daily [Active]; omeprazole 20 mg Oral em cpDR 1 cap once daily [Active]; tramadol 50 mg Oral tab 1 tab every 4-6 hours [Active]; - PMHx: 10:08 GERD; tachycardia; elevated liver enzymes; Arthritis; em - PSHx: 10:08 Hernia repair; em - Immunization history:: Last tetanus immunization: up to date Flu vaccine is not up to date. - Social history:: Smoking status: Patient/guardian denies using tobacco. - Ebola Screening: : Patient negative for fever greater than or equal to 101.5 degrees Fahrenheit, and additional compatible Ebola Virus Disease symptoms Patient denies exposure to infectious person Patient denies travel to an Ebola-affected area in the 21 days before illness onset No symptoms or risks identified at this time. - Family history:: not pertinent. - Hospitalizations: : No recent hospitalization is reported. Screenin:08 Abuse screen: Denies threats or abuse. Nutritional screening: No deficits noted. em Tuberculosis screening: No symptoms or risk factors identified. Fall Risk None identified. Assessment: 10:08 General: Appears in no apparent distress. comfortable, Behavior is calm, cooperative, em Denies fever. Pain: Complains of pain in umbilical area and right lower quadrant Pain currently is 4 out of 10 on a pain scale. Quality of pain is described as sharp, Is intermittent. Neuro: Level of Consciousness is awake, alert, obeys commands, Oriented to person, place, time, situation. Cardiovascular: Capillary refill < 3 seconds Patient's skin is warm and dry. Respiratory: Airway is patent Respiratory effort is even, unlabored, Respiratory pattern is regular, symmetrical. GI: Abdomen is flat, Bowel sounds present X 4 quads. Abd is soft X 4 quads Abdomen is tender to palpation in umbilical area and right lower quadrant Reports nausea, Patient currently denies diarrhea, vomiting. : Denies pain testicles. Derm: Skin is intact, is healthy with good turgor. Musculoskeletal: Capillary refill < 3 seconds, Range of motion: intact in all extremities. 10:15 Reassessment: Patient appears in no apparent distress at this time. No changes from iw previously documented assessment. i agree with above assessment by Franklyn Paulson LVN. 12:07 Reassessment: Patient appears in no apparent distress at this time. Patient and/or em family updated on plan of care and expected duration. Pain level reassessed. Patient is alert, oriented x 3, equal unlabored respirations, skin warm/dry/pink. Patient denies pain at this time. Patient states feeling better. Patient states symptoms have improved. Vital Signs: 10:08 BP 137 / 98; Pulse 85; Resp 18; Temp 98.3; Pulse Ox 97% on R/A; Weight 93.89 kg; Height em 6 ft. 0 in. (182.88 cm); Pain 4/10; 11:00 BP 122 / 84; Pulse 77; Resp 18; Pulse Ox 99% on R/A; Pain 0/10; em 12:12 BP 114 / 86; Pulse 75; Resp 18; Pulse Ox 99% on R/A; Pain 0/10; em 10:08 Body Mass Index 28.07 (93.89 kg, 182.88 cm) em ED Course: 09:50 Patient arrived in ED. ag5 09:50 Fredy Capone DO is Private Physician. ag5 09:52 Franklyn Paulson LVN is Primary Nurse. em 09:53 Santo Chatman MD is Attending Physician. rn 10:08 Arm band placed on. em 10:08 Patient has correct armband on for positive identification. Placed in gown. Bed in low em position. Call light in reach. Adult w/ patient. Pulse ox on. NIBP on. 10:09 Triage completed. iw 10:50 Initial lab(s) drawn, by me, sent to lab. Inserted saline lock: 20 gauge in right em antecubital area, using aseptic technique. Blood collected. 11:[address] mw3 11:58 CT completed. Patient tolerated procedure well. Patient moved back from CT. mw3 11:59 CT Abd/Pelvis - W/Contrast In Process Unspecified. EDMS 12:29 No provider procedures requiring assistance completed. IV discontinued, intact, em bleeding controlled, No redness/swelling at site. Pressure dressing applied. Administered Medications: 10:20 Drug: Zofran 4 mg Route: IVP; Site: right antecubital; iw 12:09 Follow up: Response: No adverse reaction; Nausea is decreased em 10:22 Drug: morphine 4 mg Route: IVP; Site: right antecubital; iw 12:09 Follow up: Response: No adverse reaction; Pain is decreased em Outcome: 12:14 Discharge ordered by MD. rn 12:27 Discharged to home ambulatory. em 12:27 Condition: good 12:27 Discharge instructions given to patient, Instructed on discharge instructions, follow up and referral plans. medication usage, Demonstrated understanding of instructions, follow-up care, medications, Prescriptions given X 2. 12:30 Patient left the ED. em Signatures: Dispatcher [employer] EDAL Franklyn Paulson LVN ASSISTANT TRACK COACH em Gaby Suresh, [place] RN Santo Chatman MD MD rn Willis, Michelle mw3 Refugio, Candace ag5
--- NOTE | 2018-07-12 12:15 | EDPHYS ---
Physician Documentation [facility] Name: Fidencio Riley Age: 42 yrs Sex: Male : 1975 Arrival Date: 07/12/2018 Time: 09:50 Bed 18 Private MD: Fredy Capone ED Physician Santo Chatman HPI: 07/12 11:00 This 42 yrs old Male presents to ER via Ambulatory with complaints of rn Abdominal Pain. 11:00 The patient presents with abdominal pain. Onset: The symptoms/episode began/occurred 2 rn day(s) ago. The symptoms do not radiate. Associated signs and symptoms: Pertinent positives: anorexia, Pertinent negatives: nausea and vomiting, diarrhea, dysuria, fever, testicular pain. The symptoms are described as sharp, stabbing. Modifying factors: The symptoms are alleviated by nothing, the symptoms are aggravated by touching the area. Severity of pain: At its worst the pain was moderate in the emergency department the pain has improved. The patient has experienced a previous episode. REports periumbilical abd pain, began 2 days ago, no trauma/fever/vomiting/diarrhea. Reports had hernia repair at that location 1 year ago. Having normal bowel movements and no urinary complaint. Also hurts RLQ. + decreased appetite. . Historical: - Allergies: 10:08 Enbrel; em - Home Meds: 10:08 metoprolol tartrate 25 mg Oral tab 1 tab once daily [Active]; omeprazole 20 mg Oral em cpDR 1 cap once daily [Active]; tramadol 50 mg Oral tab 1 tab every 4-6 hours [Active]; - PMHx: 10:08 GERD; tachycardia; elevated liver enzymes; Arthritis; em - PSHx: 10:08 Hernia repair; em - Immunization history:: Last tetanus immunization: up to date Flu vaccine is not up to date. - Social history:: Smoking status: Patient/guardian denies using tobacco. - Ebola Screening: : Patient negative for fever greater than or equal to 101.5 degrees Fahrenheit, and additional compatible Ebola Virus Disease symptoms Patient denies exposure to infectious person Patient denies travel to an Ebola-affected area in the 21 days before illness onset No symptoms or risks identified at this time. - Family history:: not pertinent. - Hospitalizations: : No recent hospitalization is reported. ROS: 11:00 Constitutional: Negative for fever, chills, and weight loss, Eyes: Negative for injury, rn pain, redness, and discharge, Neck: Negative for injury, pain, and swelling, Cardiovascular: Negative for chest pain, palpitations, and edema, Respiratory: Negative for shortness of breath, cough, wheezing, and pleuritic chest pain, Abdomen/GI: + abd pain, negative for nausea/vomitin/diarrhea MS/Extremity: Negative for injury and deformity, Skin: Negative for injury, rash, and discoloration, Neuro: Negative for headache, weakness, numbness, tingling, and seizure. Exam: 11:00 Constitutional: This is a well developed, well nourished patient who is awake, alert, rn appears uncomfortable Head/Face: Normocephalic, atraumatic. ENT: MMM Respiratory: No increased work of breathing, no retractions or nasal flaring. Abdomen/GI: soft, + periumbilical and RLQ tenderness, no masses Skin: Warm, dry with normal turgor. Normal color with no rashes, no lesions, and no evidence of cellulitis. MS/ Extremity: Pulses equal, no cyanosis. Neurovascular intact. Full, normal range of motion. Equal circumference. Neuro: Awake and alert, GCS 15, oriented to person, place, time, and situation. Cranial nerves II-XII grossly intact. Motor strength 5/5 in all extremities. Sensory grossly intact. Cerebellar exam normal. Normal gait. Vital Signs: 10:08 BP 137 / 98; Pulse 85; Resp 18; Temp 98.3; Pulse Ox 97% on R/A; Weight 93.89 kg; Height em 6 ft. 0 in. (182.88 cm); Pain 4/10; 11:00 BP 122 / 84; Pulse 77; Resp 18; Pulse Ox 99% on R/A; Pain 0/10; em 12:12 BP 114 / 86; Pulse 75; Resp 18; Pulse Ox 99% on R/A; Pain 0/10; em 10:08 Body Mass Index 28.07 (93.89 kg, 182.88 cm) em MDM: 09:53 Patient medically screened. rn 12:13 Differential diagnosis: appendicitis, bowel obstruction, gastritis, gastroesophageal rn reflux disease, non-specific abd pain, pancreatitis, Ureterolithiasis. Data reviewed: vital signs, nurses notes, lab test result(s), radiologic studies, CT scan, and as a result, I will discharge patient. Counseling: I had a detailed discussion with the patient and/or guardian regarding: the historical points, exam findings, and any diagnostic results supporting the discharge/admit diagnosis, lab results, radiology results, the need for outpatient follow up, to return to the emergency department if symptoms worsen or persist or if there are any questions or concerns that arise at home. Response to treatment: the patient's symptoms have markedly improved after treatment, and as a result, I will discharge patient. Special discussion: Based on the patient's Hx, exam, and Dx evaluation, there is no indication for emergent surgery or inpatient Tx. It is understood by the patient/guardian that if the Sx's persist or worsen they need to return immediately for re-evaluation. I discussed with the patient/guardian in detail that at this point there is no indication for admission to the hospital. It is understood, however, that if the symptoms persist or worsen the patient needs to return immediately for re-evaluation. ED course: No clear etiology of abd pain after blood and ct scan, return precautions given and understood.. 07/12 10:01 Order name: Basic Metabolic Panel 07/12 10:01 Order name: CBC with Diff; Complete Time: 10:55 07/12 10:01 Order name: Hepatic Function 07/12 10:01 Order name: Lipase; Complete Time: 11: 07/12 10:02 Order name: Basic Metabolic Panel; Complete Time: 11: [facility] 07/12 10:02 Order name: Liver (Hepatic) Function; Complete Time: 11: [facility] 07/12 10:01 Order name: IV Saline Lock; Complete Time: 10:32 07/12 10:01 Order name: Labs collected and sent; Complete Time: 10: rn 07/12 10:01 Order name: CT Abd/Pelvis - W/Contrast; Complete Time: 12:08 rn Administered Medications: 10:20 Drug: Zofran 4 mg Route: IVP; Site: right antecubital; iw 12:09 Follow up: Response: No adverse reaction; Nausea is decreased em 10:22 Drug: morphine 4 mg Route: IVP; Site: right antecubital; iw 12:09 Follow up: Response: No adverse reaction; Pain is decreased em Disposition: 07/12/18 12:14 Discharged to Home. Impression: Unspecified abdominal pain. - Condition is Stable. - Discharge Instructions: Abdominal Pain, Adult. - Prescriptions for Zofran ODT 4 mg Oral tablet,disintegrating - place 1 tablet by TRANSLINGUAL route every 8 hours As needed; 20 tablet. Ultram 50 mg Oral Tablet - take 1 tablet by ORAL route every 6 hours As needed; 20 tablet. - Medication Reconciliation Form, Thank You Letter, Antibiotic Education, Prescription Opioid Use form. - Follow up: Private Physician; When: As needed; Reason: Recheck today's complaints, Re-evaluation by your physician. - Problem is new. - Symptoms have improved. Signatures: Dispatcher [employer] EDFranklyn Shen, RUFUS VALDEZN Gaby Ludwig RN RN iw Santo Chatman MD MD international project manager: (The following items were deleted from the chart) 12:30 12:14 07/12/2018 12:14 Discharged to Home. Impression: Unspecified abdominal pain. em Condition is Stable. Forms are Medication Reconciliation Form, Thank You Letter, Antibiotic Education, Prescription Opioid Use. Follow up: Private Physician; When: As needed; Reason: Recheck today's complaints, Re-evaluation by your physician. Problem is new. Symptoms have improved. rn
[2018-07-12 13:12] VITALS: TEMP 98.3
[2018-07-12 13:13] VITALS: O2SAT 99
[2018-07-12 13:15] VITALS: BP 114/86
== END 2018-07-12 12:30 | disposition home or self-care (01) ==
LOC: ER 09:48
DX: R10.31 Right lower quadrant pain (principal); K21.9 Gastro-esophageal reflux disease without esophagitis
CPT/HCPCS: 85025; 80048; 36415; 80076; 83690; 74177; 96375; 96374; 99284; Q9967; J2405